=== PATIENT | female | born 1950 | race Caucasian/White ===

== ENCOUNTER 2018-06-08 15:22 | Emergency (ER) | payer MEDICARE ==
[~2018-06-08] VITALS: Ht 167.6 cm; Wt 75.4 kg
[2018-06-08 16:07] VITALS: BP 163/90
--- NOTE | 2018-06-08 17:17 | NUR ---
FROM LOBBY TO ROOM
--- NOTE | 2018-06-08 17:27 | NUR ---
PATIENT WOKE UP ON DAY AND HAVING SPOTTY HAZY VISION. SHE HAS A HX OF MS AND GLAUCOMA. SHE HAS HAD OCULAR SURGERIES INCLUDING CATARACTS AND SURGERIES FOR DOUBLE VISION. SHE STATES SHE HAS BEEN HAVING THIS HAZY VISION EVER SINCE. NO HEADACHES.
[2018-06-08] MEDS ORDERED: ROSU10TA PO (17:36)
[2018-06-08] MEDS ORDERED: BUSP15TA PO (17:36)
[2018-06-08] MEDS ORDERED: TAFL1DRO EACHEYE (17:36)
[2018-06-08] MEDS ORDERED: IBUP-11 PO (17:36)
[2018-06-08] MEDS ORDERED: ESCI10TA10 PO (17:36)
[2018-06-08] MEDS ORDERED: BACL20TA PO (17:36)
--- NOTE | 2018-06-08 18:40 | NUR ---
patient visual acquity done. she is patiently awaiting ed workup.
--- NOTE | 2018-06-08 19:37 | NUR ---
REPORT FROM RACHEL GONZALES. PT WAITING FOR OPTHOMOLOGY CONSULT
--- NOTE | 2018-06-08 20:19 | NUR ---
OPTHO AT BEDSIDE
--- NOTE | 2018-06-08 20:47 | NUR ---
CARE ASSUMED FOR DC. PT DC'D HOME WITH REFERRAL TO OPTHOMOLOGIST.. PT ESCORTED TO DC DESK, GAIT STEADY.
== END 2018-06-08 20:50 | disposition home or self-care (01) ==
LOC: ED 20:44
DX: H43.12 Vitreous hemorrhage, left eye (principal); H40.9 Unspecified glaucoma
CPT/HCPCS: 99281; 99282; 99283